=== PATIENT | female | born 1990 | race Caucasian/White ===

== ENCOUNTER → 2016-07-21 | Outpatient (CLI) | payer MEDICAID ==
[~2016-07-21] MED LIST: ASPIRIN 81MG TA81 MG PO; COREG 6.25MG6.25 MG PO; IRON TABLETS325 MG PO; KEFLEX 500MG.500 MG PO; LABETALOL200 MG PO; LEVOTHYROXINE0.05 MG PO; MACROBID 100MG100 MG PO; METFORMIN1000 MG PO; METHYLDOPA250 MG PO; METOPROLOL25 MG PO; PANTOPRAZOLE SO40 MG PO; PERCOCET 5/3251 EACH PO; PRAVASTATIN 20M20 MG PO; PRENATAL1 TA2 PO; SINGULAIR10 MG PO; SPRINTEC 35 MCG1 TAB PO
[2016-07-21 08:30] LABS: HEMOGLOBIN 12.2 g/dL (12.2-16.2); LYMPH # 1.8 K/mm3 (0.7-4.5); LYMPH % 16.5 % (10-50.0)
[2016-07-21 08:42] LABS: URINE BILIRUBIN - DIPSTICK NEGATIVE (NEG); URINE BLOOD TRACE-LYSED (NEG)
[2016-07-22 08:48] LABS: Iron 54 ug/dL (27-159); Iron Saturation 9 % (15-55); UIBC 530 ug/dL (131-425)
== END ==
LOC: LAB 07:58
PROVIDERS: Family Medicine
DX: E03.9 Hypothyroidism, unspecified (principal); E11.9 Type 2 diabetes mellitus without complications; I10 Essential (primary) hypertension; J45.909 Unspecified asthma, uncomplicated; Z86.2 Personal history of diseases of the blood and blood-forming organs and certain disorders involving the immune mechanism

== ENCOUNTER → 2017-01-14 | Outpatient (CLI) | payer MEDICAID ==
[~2017-01-14] MED LIST changes: +LABETALOL 100M100 M1 PO
[2017-01-14 08:49] LABS: LYMPH # 1.9 K/mm3 (0.7-4.5); LYMPH % 21.4 % (10-50.0)
[2017-01-14 09:03] LABS: HEMOGLOBIN 13.6 g/dL (12.2-16.2)
[2017-01-14 09:44] LABS: BUN 11 mg/dL (7-18); GFR (ESTIMATED) 100 ML/MIN (59-)
== END ==
LOC: LAB 08:17
PROVIDERS: Surgery
DX: K80.12 Calculus of gallbladder with acute and chronic cholecystitis without obstruction (principal); Z01.812 Encounter for preprocedural laboratory examination

== ENCOUNTER 2017-01-22 07:02 | Day surgery (SDC) | payer MEDICAID ==
[~2017-01-22] VITALS: Ht 162.6 cm; Wt 102.1 kg
--- NOTE | 2017-01-22 10:19 | Operative Note ---
Surgeon/Diagnoses Surgeon/Marker Assembler(s) Date of procedure: 01/22/17 Surgeon: MD Cristina Lucio Diagnoses Pre-op diagnosis: Chronic calculus cholecystitis Post-op diagnosis Same Procedure Procedure Procedure: Laparoscopic cholecystectomy Indications: BRENDAN ADAN is a 26 year-old Female with a history of RIGHT upper quadrant pain and radiographic evidence consistent with chronic calculus cholecystitis. Findings: Distended gallbladder with thickening and fat stranding at the infundibulum Large gallstone with smaller satellite stones Procedure Description: After informed consent was obtained, the patient was taken to the operating room and placed in the supine position. General anesthesia was induced and the patient's abdomen was prepped and draped in a sterile fashion. After infiltration with local anesthetic an infraumbilical incision was made. A Veress needle was placed in position. The abdomen was insufflated. A 5 mm optical trocar was placed in position. Under direct visualization, 2 additional 5 mm trocars were placed in the RIGHT upper quadrant. A 12 mm trocar was placed in the subxiphoid position. The gallbladder was elevated up and over the liver margin. The tissue around the cystic duct was carefully dissected. This tissue was quite thickened. Dissection was very difficult. Clips were placed proximally and the duct was transected at the infundibulum utilizing harmonic jovanna. Harmonic jovanna were then utilized to remove the gallbladder from the liver margin. The gallbladder was placed in a retrieval bag and removed through the subxiphoid trocar site. An extended incision medially and laterally was required to remove the gallbladder with large stone. The RIGHT upper quadrant was thoroughly irrigated. No active bleeding or bile leak was noted. Pneumoperitoneum was released as the remaining trocars were removed. Fascia at the subxiphoid trocar site was reapproximated with 0 Ethibond. All wounds were irrigated and skin was closed with 4-0 Monocryl in a subcuticular fashion. Steri-Strips were applied and the patient's anesthetic agents were reversed. After extubation, the patient was transferred to recovery in stable condition. EBL (ml): 10 Anesthesia: GETA Complications: No immediate Specimens: Gallbladder and contents Disposition Disposition: Stable to recovery from where she will be discharged home. She will follow-up in 1-2 weeks. at 1015
--- NOTE | 2017-01-22 10:28 | Anesthesia Record ---
Anesthesia Record Part II Discharge time: 1055 Destination: Same day surgery PACU nurse assessment review? Yes Patient is: Stable Anesthesia complications? No at [id number]
--- NOTE | 2017-01-22 10:28 | Anesthesia Record ---
Anesthesia Record Part I Total IV fluids: 1000 EBL (ml): 25 Urine Output: 0 B/P: 130/70 % SaO2: 97 Pulse: 88 Resps: 18 Temp: 97.8 Patient is: Stable Stable to PACU at: 1025 at 1028
[2017-01-22 13:35] VITALS: BP 113/68
== END 2017-01-22 12:10 | disposition home or self-care (01) ==
LOC: SDC 07:02
PROVIDERS: Surgery
PROC: 0FT44ZZ Resection of Gallbladder, Percutaneous Endoscopic Approach (ICD-10-PCS; principal; 2017-01-22 08:30)
DX: K80.10 Calculus of gallbladder with chronic cholecystitis without obstruction (principal)
CPT/HCPCS: J0131; J2405; J2710